=== PATIENT | female | born 1975 | race Two or more races ===

== ENCOUNTER 2018-05-18 11:23 | Emergency (ER) | payer BC, OTHER | END 2018-05-18 13:59 | disposition home or self-care (01) | LOC: FTE 11:23 | DX: M25.572 Pain in left ankle and joints of left foot (principal) | CPT/HCPCS: 73610; 99283-25 ==

== ENCOUNTER 2019-05-01 13:06 | Day surgery (SDC) | payer BC ==
[2019-05-01] MEDS ORDERED: LIDOCAINE 2% (SDV) 5 ML INJ (17:38)
[2019-05-01] MEDS ORDERED: PROPOFOL 40 ML (17:38)
== END 2019-05-01 18:46 | disposition home or self-care (01) ==
LOC: GIL 13:06
DX: K29.50 Unspecified chronic gastritis without bleeding (principal); B96.81 Helicobacter pylori [H. pylori] as the cause of diseases classified elsewhere; K25.9 Gastric ulcer, unspecified as acute or chronic, without hemorrhage or perforation; K20.9 Esophagitis, unspecified; K29.80 Duodenitis without bleeding; E66.01 Morbid (severe) obesity due to excess calories; Z68.41 Body mass index [BMI] 40.0-44.9, adult
CPT/HCPCS: 43239; 84703; 88305; 88312